=== PATIENT | male | born 1970 | race Caucasian/White ===

== ENCOUNTER 2016-10-22 19:33 | Inpatient (IN) | payer OTHER ==
[~2016-10-22] VITALS: Ht 170.2 cm; Wt 108.8 kg
[~2016-10-22 19:33] MED LIST: LORA-441 PO
[2016-10-22 23:55] VITALS: BP 132/83; PULSE 98; RESP 16
[2016-10-23] VITALS (10 sets, daily range): BP systolic 127–141; BP diastolic 70–86; PULSE 81–95; RESP 14–19; Ht 170.2 cm; Wt 108.8 kg
[2016-10-23] MEDS ORDERED: LORAZEPAM 2 MG INJ IV PRN (01:00)
--- NOTE | 2016-10-23 03:20 | HP ---
Date/Time of Note Date/Time of Note DATE: 10/23/16 TIME: 00:55 Assessment/Plan VTE Prophylaxis VTE Prophylaxis Intervention: SCD's Assessment/Plan Assessment/Plan 45 yo M with 1. Seizure d/o with breakthrough seizures 2. Alcohol use and abuse PLAN: admit / begin keppra / Neurology consult / MRI / supportive care Alcohol Cessation Therapy: Pt. was lectured for greater than 3 minutes on the health risks of continued alcohol abuse and the benefits of cessation and this will continue to be reinforced throughout hospitalization. Continue supportive care Further evaluation and treatment will be based on clinical course Full discussion with care team done. All questions Answered Please also see orders. HPI/ROS Admit Date/Time Admit Date/Time Oct 22, 2016 at 23:45 Hx of Present Illness 45-year-old male who is being referred to us from the emergency room at [facility] where he was taken by ambulance after he had had a seizure in the field and supposedly had a witnessed seizure there as well. The patient reports that he has a history of seizure disorder but has not had seizures in about 2 years, apparently also has a history of alcohol abuse and reports his been sober for a while but started drinking again October and he thinks this might have precipitated the seizures. Because he has not had seizures for a while he does not take any medications for seizures currently he is alert and oriented and does not have any acute complaints. He had a CT scan done in the emergency room at [place] [facility] of the brain that showed no acute abnormalities. He also had a chest x-ray that also showed no acute cardiopulmonary abnormalities. ROS 12 point review if systems was done and pertinent findings are as noted. PMH/Family/Social Past Medical History seizures Past Surgical History Past Surgical Hx: no surgical history Social History Alcohol Use: heavy Exam/Review of Systems Vital Signs Vitals Vital Signs Date Time Temp Pulse Resp B/P Pulse Ox O2 Delivery O2 Flow Rate FiO2 10/23/16 00:28 95 10/22/16 23:55 98.0 16 132/83 97 Room Air Exam Exam Constitutional: alert, oriented Head: atraumatic, normocephalic Neck: non-tender, supple Respiratory: clear to auscultation Cardiovascular: regular rate and rhythm Gastrointestinal: nl liver, spleen, non-tender, soft Extremities: normal pulses FRANKIE OCHOA Oct 23, 2016 01:05
[2016-10-23] MEDS: LEVETIRACETAM 500 MG (PMX) 100 ML IVPB SCH ×2 (06:30→08:24)
[2016-10-23] MEDS: CHLORDIAZEPOXIDE 25 MG CAP PO SCH ×2 (06:37→13:06)
[2016-10-23] MEDS ORDERED: LORAZEPAM 2 MG INJ IV ONE (07:30)
[2016-10-23 07:42] LABS: ADD SCAN DIFF NO
[2016-10-23 07:48] LABS: BASOPHIL # 0.1 10^3/ul (0.0-0.1); BASOPHILS % 0.7 % (0.0-2.0); EOSINOPHILS # 0.3 10^3/ul (0.0-0.5); HEMATOCRIT 38.2 % (42.0-52.0); HEMOGLOBIN 12.1 g/dl (14.0-18.0); LYMPHOCYTES # 1.9 10^3/ul (0.8-2.9); MEAN CORPUSCULAR HGB CONC 31.7 g/dl (32.0-37.0); MEAN CORPUSCULAR VOLUME 85.3 fl (82.0-101.0); MEAN PLATELET VOLUME 9.7 fl (7.4-10.4); MONOCYTE # 0.6 10^3/ul (0.3-0.9); MONOCYTES % 7.8 % (0.0-11.0); NEUTROPHIL # 4.6 10^3/ul (1.6-7.5); PLATELET COUNT 254 10^3/UL (140-415); RED BLOOD COUNT 4.48 10^6/ul (4.70-6.10); RED CELL DISTRIBUTION WIDTH 15.1 % (11.5-14.5); WHITE BLOOD COUNT 7.4 10^3/ul (4.8-10.8)
[2016-10-23 08:09] LABS: ALBUMIN 4.5 g/dl (3.3-4.9); BILIRUBIN,INDIRECT 0.2 mg/dl (0-1.1); BILIRUBIN,TOTAL 0.2 mg/dl (0.2-1.3); CALCIUM 9.2 mg/dl (8.4-10.2); CHOL/HDL RATIO 4.8 RATIO; CREATININE 0.77 mg/dl (0.61-1.24); MAGNESIUM 2.1 mg/dl (1.7-2.5); PHOSPHORUS 3.7 mg/dl (2.5-4.9); POTASSIUM 4.6 mmol/L (3.5-5.1); TOTAL PROTEIN 7.5 g/dl (6.1-8.1)
[2016-10-23 08:39] LABS: THYROID STIMULATING HORMONE 1.46 MIU/L (0.465-4.680)
[2016-10-23] MEDS ORDERED: MULTIVITAMINS 10 ML, THIAMINE 100 MG, FOLIC ACID 1 MG in SOD CHLORIDE 0.9% 1,000 ML IVPB SCH (09:00)
[2016-10-23] MEDS ORDERED: FAMOTIDINE 20 MG TAB PO SCH (09:00)
[2016-10-23] MEDS ORDERED: DOCUSATE SODIUM 100 MG CAP PO SCH (09:00)
[2016-10-23] MEDS ORDERED: LORAZEPAM 1 MG TAB PO PRN (11:30)
--- NOTE | 2016-10-23 18:05 | RADRPT ---
PROCEDURE: MR Brain without contrast. CLINICAL INDICATION: Seizure. TECHNIQUE: MRI brain without contrast was performed. Examination was performed on the high field MRI with the following sequences: Coronal gradient echo, sagittal T1-weighted, fast spin echo axial T2-weighted, axial FLAIR, axial diffusion-weighted images, and axial ADC map images. High-resolutio n coronal FLAIR images were also obtained through the temporal lobes. COMPARISON: None available FINDINGS: The ventricles and sulci are symmetric and normal. The dobbs-white matter differentiation is preserv ed. No abnormal intra-axial or extra-axial fluid collection or mass lesion is identified. No hemor rhage or midline shift is seen. The clivus, sella turcica, corpus callosum, and midline structures are all unremarkable. The brainstem and posterior fossa structures are unremarkable. The temporal l obes are normal with no region of abnormal signal intensity or abnormal morphology. The cerebellopo ntine angle regions are clear. No skull base abnormality is seen. There is no region of restricte d diffusion to suggest recent infarct. The surrounding bony calvarium and soft tissue scalp is unremarkable. The orbits, as visualized, ar e unremarkable. The paranasal sinuses are clear IMPRESSION: 1. Normal noncontrast MRI of the brain with attention to the temporal lobes. RPTAT: QQ .Fly Gallegos MD, MD Date Time Electronically viewed and signed by .lFy Gallegos MD, MD on 10/23/2016 18:04 .R/
--- NOTE | 2016-10-23 23:16 | DS ---
Date/Time of Note Date/Time of Note DATE: 10/23/16 TIME: 23:14 Discharge Summary Admission/Discharge Info Admit Date/Time Oct 22, 2016 at 23:45 Discharge Date/Time Oct 23, 2016 at 19:50 LEFT AGAINST MEDICAL ADVICE Discharge Diagnosis 1. Alcohol intoxication. 2. Seizure disorder. 3. Obesity. 4. Non-compliance. 5. Dyslipidemia. Patient Condition: Fair Procedures Brain MRI IMPRESSION: 1. Normal noncontrast MRI of the brain with attention to the temporal lobes. Hx of Present Illness 45-year-old male who is being referred to us from the emergency room at [facility] where he was taken by ambulance after he had had a seizure in the field and supposedly had a witnessed seizure there as well. The patient reports that he has a history of seizure disorder but has not had seizures in about 2 years, apparently also has a history of alcohol abuse and reports his been sober for a while but started drinking again October and he thinks this might have precipitated the seizures. Because he has not had seizures for a while he does not take any medications for seizures currently he is alert and oriented and does not have any acute complaints. He had a CT scan done in the emergency room at [place] of the brain that showed no acute abnormalities. He also had a chest x-ray that also showed no acute cardiopulmonary abnormalities. Hospital Course The patient was admitted to inpatient telemetry floor. He was started on Keppra and PRN Ativan for any seizures. A neurology consult was obtained. A Brain MRI was done that was negative for any acute findings. He was started on tapering dose of Librium and daily banana bag. He was awaiting neurology consult. Later on October 23, 2016 the patient decided to leave the hospital against medical advice. He was told about the consequences of leaving the hospital against medical advice including the possibility of . Nevertheless, he left the hospital against medical advice. No discharge planning was done since the patient left the hospital against medical advice. Case discussed with Dr. Parks. Home Meds Active Scripts Lorazepam* (Ativan*) 0.5 Mg Tablet, 0.5 MG PO Q8 Y for ANXIETY, #10 TAB Prov:KAPIL ISAAC PA-C 08/22/15 Follow-up Plan The patient left AGAINST MEDICAL ADVICE. Primary Care Provider Not On Staff Doctor Time spent on discharge: < 30 minutes Pending Labs Laboratory Tests Test 10/23/16 07:20 White Blood Count 7.410^3/ul (4.8-10.8) Red Blood Count 4.4810^6/ul (4.70-6.10) Hemoglobin 12.1g/dl (14.0-18.0) Hematocrit 38.2% (42.0-52.0) Mean Corpuscular Volume 85.3fl (82.0-101.0) Mean Corpuscular Hemoglobin 27.0pg (29.0-33.0) Mean Corpuscular Hemoglobin Concent 31.7g/dl (32.0-37.0) Red Cell Distribution Width 15.1% (11.5-14.5) Platelet Count 64218^3/UL (140-415) Mean Platelet Volume 9.7fl (7.4-10.4) Neutrophils % 62.0% (39.0-77.0) Lymphocytes % 25.0% (15.0-51.0) Monocytes % 7.8% (0.0-11.0) Eosinophils % 4.0% (0.0-7.0) Basophils % 0.7% (0.0-2.0) Nucleated Red Blood Cells % 0.0/100WBC (0.0-0.0) Neutrophils # 4.610^3/ul (1.6-7.5) Lymphocytes # 1.910^3/ul (0.8-2.9) Monocytes # 0.610^3/ul (0.3-0.9) Eosinophils # 0.310^3/ul (0.0-0.5) Basophils # 0.110^3/ul (0.0-0.1) Nucleated Red Blood Cells # 0.010^3/ul (0.0-0.0) Sodium Level 139mmol/L (135-144) Potassium Level 4.6mmol/L (3.5-5.1) Chloride Level 101mmol/L (97-110) Carbon Dioxide Level 26mmol/L (21-31) Anion Gap 17 (8-16) Blood Urea Nitrogen 10mg/dl (7-20) Creatinine 0.77mg/dl (0.61-1.24) Glucose Level 101mg/dl (70-220) Hemoglobin A1c 5.9% (0-5.9) Calcium Level 9.2mg/dl (8.4-10.2) Phosphorus Level 3.7mg/dl (2.5-4.9) Magnesium Level 2.1mg/dl (1.7-2.5) Total Bilirubin 0.2mg/dl (0.2-1.3) Direct Bilirubin 0.00mg/dl (0.00-0.20) Indirect Bilirubin 0.2mg/dl (0-1.1) Aspartate Amino Transf (AST/SGOT) 57IU/L (15-46) Alanine Aminotransferase (ALT/SGPT) 67IU/L (13-69) Alkaline Phosphatase 85IU/L (42-121) Ammonia 15umol/l (9-30) Total Protein 7.5g/dl (6.1-8.1) Albumin 4.5g/dl (3.3-4.9) Triglycerides Level 205mg/dl (0-149) Cholesterol Level 205mg/dl (100-200) LDL Cholesterol, Calculated 122mg/dl HDL Cholesterol 42mg/dl (27-67) Cholesterol/HDL Ratio 4.8RATIO Lipase 173U/L (23-300) Thyroid Stimulating Hormone (TSH) 1.460MIU/L (0.465-4.680) TERRY DE LUNA NP Oct 23, 2016 23:16
== END 2016-10-23 19:50 | disposition left against medical advice (07) | DRG 101 ==
LOC: MS4 23:45
PROVIDERS: ADMIT Hospitalist; ATTEND Hospitalist
DX: R56.9 Unspecified convulsions (principal); E78.5 Hyperlipidemia, unspecified; F10.10 Alcohol abuse, uncomplicated; E66.9 Obesity, unspecified; Z68.37 Body mass index [BMI] 37.0-37.9, adult; Z91.19 Patient's noncompliance with other medical treatment and regimen
CPT/HCPCS: 70551; 80048; 80061; 80076; 82140; 83036; 83690; 83735; 84100; 84443; 85025; J1953; J2060; J3411; J7030

== ENCOUNTER 2017-03-29 17:59 | Inpatient (IN) | payer OTHER ==
[~2017-03-29] VITALS: Ht 170.2 cm; Wt 106.3 kg
[2017-03-29 21:22] VITALS: PULSE 91
[2017-03-29 21:33] VITALS: Ht 170.2 cm; Wt 106.3 kg
[2017-03-29 21:47] VITALS: BP 120/76; RESP 20
[2017-03-29] MEDS ORDERED: LORAZEPAM 2 MG INJ IV ONE (22:30)
[2017-03-29] MEDS ORDERED: SOD CHLORIDE 0.9% 1,000 ML IV SCH (23:52)
--- NOTE | 2017-03-29 23:57 | HP ---
Date/Time of Note Date/Time of Note DATE: 03/29/17 TIME: 23:57 Assessment/Plan VTE Prophylaxis VTE Prophylaxis Intervention: SCD's Lines/Catheters IV C[facility]ter Type (from [facility]): [facility] Urinary Cath still in place: No Assessment/Plan Chief Complaint/Hosp Course This is a 46 year male being admitted to the telemetry floor for: #1 alcohol withdrawal: Librium taper, Ativan as needed. CT scan of the head was negative at the transferring facility. CT spine the transfer facility did not show any signs of fracture. Pelvic x-ray did not show any signs of fractures. Banana bag. Will check vitamin B12 and folate and thiamine level. Consult social work regarding alcohol cessation and possible rehab/detox facility. #2 seizures: Secondary to #1. As needed Ativan. Will continue close monitoring with seizure precautions. Fall precautions. Last seizure was greater than a year ago. All of his seizures that he said has been secondary to his alcohol use. At the current time I will not start him on any medications. If indicated we may need to consult neurology. #3 Obesity: Check hemoglobin A1c, lipid panel, TSH #4 abnormal chest x-ray: There appears to be cardiomegaly versus concern for possible pericardial effusion. At the current time patient is hemodynamically stable. Will order an echocardiogram as well as a BNP level further evaluate. #5 DVT GI prolapse: SCDs, no GI prophylaxis indicated Further treatment strategy will be implemented as per the clinical course Problems: HPI/ROS Admit Date/Time Admit Date/Time Mar 29, 2017 at 21:00 Hx of Present Illness cc: Alcohol withdrawal, seizure This is a 46-year-old male who was originally admitted to [facility] and transferred here for alcohol withdrawal status post seizure. Patient states that he has been drinking heavily for greater than 15 years. He admits to drinking multiple alcoholic drinks daily. He was at the store after a binge drinking episode and apparently he fell there and collapsed. He was taken down to the hospital via ambulance where he was told that he was witnessed to be convulsing. Patient states that he has experienced seizures in the past secondary to his alcohol use. However he has not had a seizure in the past year. He does state that he wants to quit drinking. He does report having stress in his life. But mainly his alcohol use started when he was in a bad. Allergies: NKDA Medications: None ROS Const: As per HPI Eyes : No pain discharge or redness or change in visual acuity ENT: No pain, sore throat, congestion, congestion, dysphagia or discharge Respiratory: No shortness of breath, cough, sputum, wheezing, or pleuritic pain Cardiovascular: No chest pain, palpitation, PND, or edema GI : no change in appetite, abdominal pain, nausea, vomiting, diarrhea, constipation, or change in the color his stool Genitourinary: No dysuria, hematuria, flank pain , discharge or CVA tenderness Musculoskeletal: No joint pain, back pain, neck pain, restricted range of motion in neck or joints Skin: No rash, bruising or hives Neuro: As per HPI Endocrine: No polyuria, polydipsia, temperature intolerance Psych: No hallucination, depression, anxiety or suicidal ideation PMH/Family/Social Past Medical History Alcohol abuse Past Surgical History Left hand surgery Family History Significant Family History: no pertinent family hx Social History Alcohol Use: heavy Smoking Status: Never smoker Drug Use: none Exam/Review of Systems Vital Signs Vitals Vital Signs Date Time Temp Pulse Resp B/P Pulse Ox O2 Delivery O2 Flow Rate FiO2 03/29/17 21:47 98.5 85 20 120/76 96 Exam Exam General: This is a pleasant male lying in bed in no acute distress. Does not appear to be anxious or tremulous. HEENT: Atraumatic, normocephalic. The pupils are equal, round and reactive. Extraocular motor are intact Neck: Supple with full range of motion. No rigidity or meningismus Chest: Nontender Lungs: Clear to auscultation bilaterally no crackles rales or wheezing Heart: Normal S1-S2, Regular rhythm and rate. No murmur, S3, or S4 Abdomen: Soft , nontender, nondistended , bowel sounds are present. No guarding no rebound tenderness , No masses or organomegaly. No costovertebral temporal angle mass Extremities: Normal to inspection, no edema no cyanosis Neurologic: Normal mental status, speech normal, cranial nerves II through XII are intact, motor and sensory are intact, no focal weakness, does not appear to be tremulous or anxious. Psych: Does not appear to be tremulous or anxious she has. Denies any homicidal or suicidal ideation. Additional Comments Pertinent laboratory findings from transfer facility below, please see full details of the report in the chart ekg: NS at 85 bpm, no st or t wave abnormalities blood alcohol level: 275 at 11:30 cbc wnl sodium 134 uds:neg benzo positive ct head: neg ct spine: limited cervical spine eval, but no definite fx seen cxr: cardiac silhouete enlarded..cardiomegaly or pericardial effusion xr pelvis: no fx or dislocation Medications Medications Current Medications Sodium Chloride (NS) 1,000 ml @ 80 mls/hr [id number] IV ; Start 03/29/17 at 23:52 ; Status UNV Lorazepam (Ativan) 1 mg Q4 PRN IV ANXIETY; Start 03/30/17 at 00:00; Status UNV Ondansetron HCl (Zofran Inj) 4 mg Q6H PRN IV NAUSEA AND/OR VOMITING; Start at 00:00; Status UNV Acetaminophen (Tylenol Tab) 650 mg Q6H PRN PO PAIN LEVEL 1-3 OR FEVER; Start 03/30/17 at 00:00; Status UNV Docusate Sodium (Colace) 100 mg Q12H PRN PO CONSTIPATION; Start 03/30/17 at 00 :00; Status UNV Bisacodyl 5 mg 5 mg DAILY PRN PO CONSTIPATION; Start 03/30/17 at 00:00; Status UNV Multivitamins/ Thiamine HCl/ Folic Acid/Sodium Chloride (Mvi Adult/ Vitamin B1/ Folic Acid/NS) 1,011.2 ml @ 125 mls/ hr DAILY@09 IVPB ; Start 03/30/17 at 09: 00; Status UNV MARÍA MACIAS Mar 29, 2017 23:57
[2017-03-30] VITALS (8 sets, daily range): BP systolic 124–139; BP diastolic 67–76; PULSE 81–98; RESP 16–20
[2017-03-30] MEDS ORDERED: ONDANSETRON 4 MG INJ IV PRN
[2017-03-30] MEDS ORDERED: NACL 0.9% 3 ML SYG IV SCH
[2017-03-30] MEDS ORDERED: LORAZEPAM 2 MG INJ IV PRN
[2017-03-30] MEDS ORDERED: ACETAMINOPHEN 325 MG TAB PO PRN
[2017-03-30] MEDS ORDERED: BISACODYL (EC) 5 MG TAB PO PRN
[2017-03-30] MEDS ORDERED: DOCUSATE SODIUM 100 MG CAP PO PRN
[2017-03-30] MEDS: CHLORDIAZEPOXIDE 25 MG CAP PO SCH ×3 (00:22→12:19)
[2017-03-30 01:03] LABS: BASOPHILS % 0.6 % (0.0-2.0); EOSINOPHILS # 0.2 10^3/ul (0.0-0.5); EOSINOPHILS % 2.4 % (0.0-7.0); HEMATOCRIT 38.3 % (42.0-52.0); HEMOGLOBIN 12.7 g/dl (14.0-18.0); LYMPHOCYTES # 2.1 10^3/ul (0.8-2.9); LYMPHOCYTES % 29.4 % (15.0-51.0); MEAN CORPUSCULAR HEMOGLOBIN 27.7 pg (29.0-33.0); MEAN CORPUSCULAR HGB CONC 33.2 g/dl (32.0-37.0); MEAN CORPUSCULAR VOLUME 83.6 fl (82.0-101.0); MEAN PLATELET VOLUME 9.8 fl (7.4-10.4); MONOCYTE # 0.5 10^3/ul (0.3-0.9); MONOCYTES % 6.6 % (0.0-11.0); NEUTROPHIL # 4.3 10^3/ul (1.6-7.5); NEUTROPHILS % 60.6 % (39.0-77.0); PLATELET COUNT 239 10^3/UL (140-415); RED BLOOD COUNT 4.58 10^6/ul (4.70-6.10); RED CELL DISTRIBUTION WIDTH 15.4 % (11.5-14.5); WHITE BLOOD COUNT 7.1 10^3/ul (4.8-10.8)
[2017-03-30 01:15] LABS: ALBUMIN 3.7 g/dl (3.3-4.9); ALBUMIN/GLOBULIN RATIO 0.97; BILIRUBIN,INDIRECT 0.2 mg/dl (0-1.1); BILIRUBIN,TOTAL 0.2 mg/dl (0.2-1.3); CALCIUM 8.7 mg/dl (8.4-10.2); CREATININE 0.93 mg/dl (0.61-1.24); POTASSIUM 4.2 mmol/L (3.5-5.1); TOTAL PROTEIN 7.5 g/dl (6.1-8.1)
[2017-03-30 05:31] LABS: FOLATE 7.8 ng/ml (2.8-20.0)
[2017-03-30 07:33] LABS: BASOPHILS % 0.5 % (0.0-2.0); EOSINOPHILS # 0.2 10^3/ul (0.0-0.5); EOSINOPHILS % 2.2 % (0.0-7.0); HEMATOCRIT 39.1 % (42.0-52.0); HEMOGLOBIN 12.6 g/dl (14.0-18.0); LYMPHOCYTES # 2.1 10^3/ul (0.8-2.9); LYMPHOCYTES % 26.4 % (15.0-51.0); MEAN CORPUSCULAR HGB CONC 32.2 g/dl (32.0-37.0); MEAN CORPUSCULAR VOLUME 83.9 fl (82.0-101.0); MEAN PLATELET VOLUME 9.6 fl (7.4-10.4); MONOCYTE # 0.5 10^3/ul (0.3-0.9); MONOCYTES % 6.2 % (0.0-11.0); NEUTROPHILS % 64.3 % (39.0-77.0); PLATELET COUNT 232 10^3/UL (140-415); RED BLOOD COUNT 4.66 10^6/ul (4.70-6.10); RED CELL DISTRIBUTION WIDTH 15.3 % (11.5-14.5); WHITE BLOOD COUNT 7.8 10^3/ul (4.8-10.8)
[2017-03-30 07:54] LABS: ALBUMIN 3.8 g/dl (3.3-4.9); ALBUMIN/GLOBULIN RATIO 1.02; BILIRUBIN,INDIRECT 0.5 mg/dl (0-1.1); BILIRUBIN,TOTAL 0.5 mg/dl (0.2-1.3); CALCIUM 8.7 mg/dl (8.4-10.2); CHOL/HDL RATIO 3.7 RATIO; CREATININE 0.82 mg/dl (0.61-1.24); MAGNESIUM 1.9 mg/dl (1.7-2.5); POTASSIUM 4.1 mmol/L (3.5-5.1); TOTAL PROTEIN 7.5 g/dl (6.1-8.1)
[2017-03-30 08:23] LABS: THYROID STIMULATING HORMONE 1.03 MIU/L (0.465-4.680)
[2017-03-30] MEDS ORDERED: MULTIVITAMINS 10 ML, THIAMINE 100 MG, FOLIC ACID 1 MG in SOD CHLORIDE 0.9% 1,000 ML IVPB SCH (09:00)
[2017-03-30] MEDS ORDERED: FOLIC ACID 1 MG TAB PO SCH (10:30)
[2017-03-30] MEDS ORDERED: THIAMINE 100 MG TAB PO SCH (10:30)
--- NOTE | 2017-03-30 11:07 | DS ---
Date/Time of Note Date/Time of Note DATE: 03/30/17 TIME: 11:05 Discharge Summary Admission/Discharge Info Admit Date/Time Mar 29, 2017 at 21:00 Discharge Date/Time Discharge Diagnosis alcohol withdrawal seizure Patient Condition: Fair Hospital Course The patient was treated with PO librium for very mild alcohol withdrawal. He was given IV thiamine and folate supplementation. By day 2, he showed no signs of alcohol withdrawal. He did not have any further seizure activity. He was offered to stay in the hospital longer for detox, but preferred to be discharged. He very much wants to stop drinking and is very disappointed in his recent relapse. He says he will go to AA meeting this evening. Home Meds Active Scripts Lorazepam* (Ativan*) 0.5 Mg Tablet, 0.5 MG PO Q8 Y for ANXIETY, #10 TAB Prov:KAPIL ISAAC PA-C 08/22/15 Primary Care Provider Not On Staff Doctor Pending Labs Laboratory Tests Test 03/30/17 00:27 03/30/17 07:01 03/30/17 07:06 White Blood Count 7.110^3/ul (4.8-10.8) 7.810^3/ul (4.8-10.8) Red Blood Count 4.5810^6/ul (4.70-6.10) 4.6610^6/ul (4.70-6.10) Hemoglobin 12.7g/dl (14.0-18.0) 12.6g/dl (14.0-18.0) Hematocrit 38.3% (42.0-52.0) 39.1% (42.0-52.0) Mean Corpuscular Volume 83.6fl (82.0-101.0) 83.9fl (82.0-101.0) Mean Corpuscular Hemoglobin 27.7pg (29.0-33.0) 27.0pg (29.0-33.0) Mean Corpuscular Hemoglobin Concent 33.2g/dl (32.0-37.0) 32.2g/dl (32.0-37.0) Red Cell Distribution Width 15.4% (11.5-14.5) 15.3% (11.5-14.5) Platelet Count 79897^3/UL (140-415) 40528^3/UL (140-415) Mean Platelet Volume 9.8fl (7.4-10.4) 9.6fl (7.4-10.4) Neutrophils % 60.6% (39.0-77.0) 64.3% (39.0-77.0) Lymphocytes % 29.4% (15.0-51.0) 26.4% (15.0-51.0) Monocytes % 6.6% (0.0-11.0) 6.2% (0.0-11.0) Eosinophils % 2.4% (0.0-7.0) 2.2% (0.0-7.0) Basophils % 0.6% (0.0-2.0) 0.5% (0.0-2.0) Nucleated Red Blood Cells % 0.0/100WBC (0.0-0.0) 0.0/100WBC (0.0-0.0) Neutrophils # 4.310^3/ul (1.6-7.5) 5.010^3/ul (1.6-7.5) Lymphocytes # 2.110^3/ul (0.8-2.9) 2.110^3/ul (0.8-2.9) Monocytes # 0.510^3/ul (0.3-0.9) 0.510^3/ul (0.3-0.9) Eosinophils # 0.210^3/ul (0.0-0.5) 0.210^3/ul (0.0-0.5) Basophils # 0.010^3/ul (0.0-0.1) 0.010^3/ul (0.0-0.1) Nucleated Red Blood Cells # 0.010^3/ul (0.0-0.0) 0.010^3/ul (0.0-0.0) Sodium Level 140mmol/L (135-144) 141mmol/L (135-144) Potassium Level 4.2mmol/L (3.5-5.1) 4.1mmol/L (3.5-5.1) Chloride Level 104mmol/L (97-110) 105mmol/L (97-110) Carbon Dioxide Level 25mmol/L (21-31) 24mmol/L (21-31) Anion Gap 15 (8-16) 16 (8-16) Blood Urea Nitrogen 13mg/dl (7-20) 12mg/dl (7-20) Creatinine 0.93mg/dl (0.61-1.24) 0.82mg/dl (0.61-1.24) Glucose Level 105mg/dl (70-220) 100mg/dl (70-220) Calcium Level 8.7mg/dl (8.4-10.2) 8.7mg/dl (8.4-10.2) Total Bilirubin 0.2mg/dl (0.2-1.3) 0.5mg/dl (0.2-1.3) Direct Bilirubin 0.00mg/dl (0.00-0.20) 0.00mg/dl (0.00-0.20) Indirect Bilirubin 0.2mg/dl (0-1.1) 0.5mg/dl (0-1.1) Aspartate Amino Transf (AST/SGOT) 48IU/L (15-46) 42IU/L (15-46) Alanine Aminotransferase (ALT/SGPT) 59IU/L (13-69) 54IU/L (13-69) Alkaline Phosphatase 72IU/L (42-121) 78IU/L (42-121) Total Protein 7.5g/dl (6.1-8.1) 7.5g/dl (6.1-8.1) Albumin 3.7g/dl (3.3-4.9) 3.8g/dl (3.3-4.9) Globulin 3.80g/dl (1.3-3.2) 3.70g/dl (1.3-3.2) Albumin/Globulin Ratio 0.97 1.02 Vitamin B12 Level 236pg/ml (239-931) Folate 7.8ng/ml (2.8-20.0) Ethyl Alcohol Level < 10.0mg/dl B-Type Natriuretic Peptide 20PG/ML (0-125) Hemoglobin A1c 5.7% (0-5.9) Magnesium Level 1.9mg/dl (1.7-2.5) Triglycerides Level 159mg/dl (0-149) Cholesterol Level 178mg/dl (100-200) LDL Cholesterol, Calculated 99mg/dl HDL Cholesterol 47mg/dl (27-67) Cholesterol/HDL Ratio 3.7RATIO Thyroid Stimulating Hormone (TSH) 1.030MIU/L (0.465-4.680) MAGED GRADY MD Mar 30, 2017 11:07
--- NOTE | 2017-03-30 11:08 | PDOCDIS ---
Discharge Instructions DIAGNOSIS Discharge Diagnosis alcohol withdrawal seizure CONDITION Patient Condition: Fair FOLLOW UP/APPOINTMENTS Follow-up Plan It is extremely important for you to stop drinking alcohol!! MAGED GRADY MD Mar 30, 2017 11:08
--- NOTE | 2017-03-30 17:09 | RADRPT ---
Echocardiogram Report Patient Name: ISABEL PERALTA Gender: Male Date: 1970 Study Date: 30-Mar-2017 Datastage Architect: Marcello Torres [facility] Location: [id number] Ref. Physician: MARÍA MACIAS Quality: Good Procedures: Transthoracic echocardiogram with complete 2D, M-Mode, and doppler examination. Indications: Cardiomegaly. 2D/M Mode Doppler Measurement Value Normal Ranges Measurement Value Normal Ranges LVIDd 2D 4.7 3.5 - 5.6 cm AV Peak Sha 1.9 m/sec LVIDs 2D 2.6 2.1 - 4.1 cm AV Peak PG 14.4 mmHg LVPWd 2D 1.0 0.6 - 1.1 cm LVOT Peak Sha 1.5 m/sec IVSd 2D 1.1 0.6 - 1.1 cm LVOT Peak PG 8.8 mmHg AoR Diam 2D 2.7 2.0 - 3.7 cm MV E Peak Sha 1.3 m/sec EDV 2D 100.9 cm3 MV A Peak Sha 1.0 m/sec ESV 2D 17.3 cm3 MV E/A 1.3 LA Dimen 2D 3.2 2.3 - 4.0 cm MV Decel Time 133 msec MV Decel [place] 10 MV E/A 1.3 TR Peak Sha 2.6 m/sec TR Peak PG 27.7 mmHg RVSP 36.0 mmHg Findings Left Ventricle: Normal left ventricular systolic function. Normal left ventricular cavity size. Mild concentric left ventricular hypertrophy. Ejection fraction is visually estimated at 65 %. Tissue Doppler/Mitral Doppler indices are within normal limits. Right Ventricle: Normal right ventricular size. Normal right ventricular systolic function. Left Atrium: The left atrium is normal in size. Right Atrium: The right atrium is normal in size. Mitral Valve: Normal appearance of the mitral valve. Mild mitral annular calcification. Trace mitral regurgitation. Aortic Valve: Normal appearance of the aortic valve. No significant aortic stenosis or insufficiency. Tricuspid Valve: Normal appearance of the tricuspid valve. Estimated peak PA systolic pressure 36 mmHg. There is mild tricuspid regurgitation. Pulmonic Valve: Normal pulmonic valve appearance. Pericardium: Normal pericardium with no significant pericardial effusion. Aorta: Normal aortic root. IVC: Dilated IVC with respiratory collapse consistent with elevated right atrial pressure. Conclusions Normal left ventricular systolic function. Normal left ventricular cavity size. Mild concentric left ventricular hypertrophy. Ejection fraction is visually estimated at 65 %. Tissue Doppler/Mitral Doppler indices are within normal limits. Normal appearance of the mitral valve. Mild mitral annular calcification. Trace mitral regurgitation. Normal appearance of the tricuspid valve. Estimated peak PA systolic pressure 36 mmHg. There is mild tricuspid regurgitation. Normal appearance of the aortic valve. No significant aortic stenosis or insufficiency. Electronically Signed By: Regino Brooks 30-Mar-2017 17:08:27 -0800 Patient Name: ISABEL PERALTA Study Date: 30-Mar-2017 [id number]
[2017-03-31] MEDS ORDERED: CHLORDIAZEPOXIDE 25 MG CAP PO SCH
[2017-04-01] MEDS ORDERED: CHLORDIAZEPOXIDE 25 MG CAP PO SCH
== END 2017-03-30 13:27 | disposition home or self-care (01) | DRG 897 ==
LOC: MS4 21:00
PROVIDERS: ADMIT Internal Medicine; ATTEND Internal Medicine
DX: F10.239 Alcohol dependence with withdrawal, unspecified (principal); G40.89 Other seizures; E66.9 Obesity, unspecified; Z68.36 Body mass index [BMI] 36.0-36.9, adult; R93.8 Abnormal findings on diagnostic imaging of other specified body structures
CPT/HCPCS: 80053; 80061; 80306; 82607; 82746; 83036; 83735; 83880; 84425; 84443; 85025; 93306; J2060; J3411; J7030

== ENCOUNTER 2017-05-09 16:45 | Emergency (ER) | END 2017-05-10 11:57 | disposition left against medical advice (07) ==

== ENCOUNTER 2017-09-19 14:53 | Inpatient (IN) | END 2017-09-21 11:30 | disposition left against medical advice (07) | DRG 894 ==

== ENCOUNTER 2018-02-17 21:35 | Inpatient (IN) | END 2018-02-18 15:03 | disposition home or self-care (01) | DRG 897 ==